=== PATIENT | female | born 1985 | race Caucasian/White ===

== ENCOUNTER 2019-03-17 10:28 | Emergency (ER) | payer MEDICARE, SELFPAY ==
[2019-03-17 10:30] VITALS: BP 101/63; PULSE 86; RESP 20; TEMP 36.7; O2SAT 100; BMI 20.5
--- NOTE | 2019-03-17 11:02 | DI.US.S_ITS ---
PROCEDURE: US OB <= 14 WEEKS FETUS INDICATIONS: SPOTTING OUTSIDE/PRIOR DATING DATA: TECHNIQUE: Real-time scanning was performed of the fetus and maternal pelvic organs, with image documentation. COMPARISON: None. FINDINGS: Embryo: [place]-rump length 1.2 cm measuring the equivalent of 7 weeks 2 days but without cardiac activity. Measurement variability in dating: +/- 4 weeks by LMP, +/- 7 days by mean sac diameter (use before 6 weeks gestation if crown-rump length not able to be measured), +/- 5 days by crown-rump length (up to 8 weeks 6 days gestation), +/- 7 days by crown-rump length (up to 13 weeks 6 days gestation). Maternal organs: Ovaries normal. Limited images through the kidneys demonstrate no hydronephrosis. IMPRESSION: demise, 7 week 2 day gestational age size. Dictated by: Joni Diggs M.D. on 03/17/2019 at 11:52 Approved by: Joni Diggs M.D. on 03/17/2019 at 12:06
[2019-03-17 11:08] LABS: Bacteria Urine None Seen; WBC Urine None Seen (0-5/HPF)
[2019-03-17 11:16] LABS: Culture Indicated Urine Cult Not Indicated; RBC Urine 5-10/HPF (0-5/HPF); Squamous Epithelial Cell Urine 5-10 /HPF (0-5/HPF)
[2019-03-17 11:19] LABS: Add Manual Diff / Slide Review NO; Basophils Absolute Auto 0 /uL (0-100); Basophils Percent Auto 0.4 % (0-2); Eosinophils Absolute Auto 100 /uL (0-450); Eosinophils Percent Auto 0.7 % (2-4); Hematocrit 37.6 % (36-46); Hemoglobin 12.9 g/dL (12.0-16.0); Lymphocytes Absolute Auto 1100 /uL (1100-4500); Lymphocytes Percent Auto 14.8 % (25-40); Mean Corpuscular HGB Conc 34.3 % (30-36); Mean Corpuscular Hemoglobin 31.1 PG (26-34); Mean Corpuscular Volume 90.6 fL (80-100); Monocytes Absolute Auto 400 /uL (0-900); Neutrophils Absolute Auto 5700 /uL (1500-7000); Neutrophils Percent Auto 79.1 % (50-75); Platelet Count 157 X10^3/uL (150-400); Red Blood Cell Count 4.15 X10^6/uL (4.0-5.2); Red Cell Distribution Width 12.5 % (11.6-14.8); White Blood Cell Count 7.2 X10^3/uL (4.5-11.0)
[2019-03-17 11:29] LABS: Alanine Aminotransferase 20 IU/L (<35); Albumin Globulin Ratio 1.6 (1.0-2.8); Alkaline Phosphatase 42 U/L (38-126); Aspartate Aminotransferase 21 IU/L (14-36); BUN Creatinine Ratio 16.3 (6-22); Bilirubin Total 0.5 mg/dL (0.2-1.3); Blood Urea Nitrogen 13 mg/dL (7-17); Calcium 9.7 mg/dL (8.4-10.2); Carbon Dioxide 24 mmol/L (22-32); Chloride 104 mmol/L (98-107); Estimated Glomerular Filt Rate > 60.0 mL/min (>60); Globulin 3.1 g/dL (1.7-4.1); Glucose 105 mg/dL (70-100); HEMOLYSIS < 15 (0-50); Potassium 3.7 mmol/L (3.4-5.1); Sodium 138 mmol/L (137-145); Total Protein 8.1 g/dL (6.3-8.2)
[2019-03-17 11:46] LABS: HCG Quantitative /Beta subunit 6634.7 mIU/mL
--- NOTE | 2019-03-17 12:24 | ED_ITS ---
HPI - <KATIE StarrP - Last Filed: 03/17/19 22:27> General Chief complaint: Vaginal Bleeding Stated complaint: possible miscarriage Time Seen by Provider: 03/17/19 11:58 Source: patient Mode of arrival: Ambulatory Limitations: no limitations History of Present Illness HPI Narrative: This is a 33-year-old female, nonsmoker, who presents to ED with spouse and young daughter with chief complain of dark brown vaginal clots and spotting for 4- 5 times since 03/15/2019 with mild low abdominal cramping. LMP 01/09/2019 and reports about 9.5 week EGA with . Patient reports her 1st was high risk with hyperemesis gravidarum, fibromyalgia and delivered her 1st daughter by . Patient is currently waiting for initial OB appointment at [facility] on 03/22/2019 and she had called of couple of times to be seen at clinic but advised to evaluated in ED since there's no appointment available. Patient denies fever, chills, increasing nausea or vomiting, urinary symptoms. Patient has morning sickness and has been using cannabis. Patient : Yes Review of Systems <KHADIJAH Starr - Last Filed: 03/17/19 22:27> Review of Systems Narrative: General: Denies fever, chills, fatigue, malaise, sweats. HEENT: Denies sinus pain, ear pain, sore throat, difficulty swallowing, dizziness. Respiratory: Denies dyspnea, cough, wheezing, hemoptysis, sputum. Cardiovascular: Denies chest pain, palpitations, orthopnea, edema. Gastrointestinal: See HPI : Denies dysuria, frequency, incontinence, hematuria, urinary retention. Musculoskeletal: Denies weakness, joint pain or bony pain. Skin: Denies rash, skin lesions, or other. Neurologic: Denies weakness, headache, numbness, change in speech, confusion, seizures, incoordination. Psychiatric: No concerning psychosocial issues. 12-point review of systems is negative except for those stated above. Genitourinary Genitourinary: Reports abnormal vaginal bleeding (With dark red small clots since 2 nights ago. Approx 9.5 EGA) PMFSH - <KATIE StarrP - Last Filed: 03/17/19 22:27> Past Medical History Additional medical history: Hyperemesis gravidium, Surgical history: Reports other (Tonsillectomy) GROUNDS AND NURSERY SPECIALIST history: Reports Other () Patient : Yes Psychiatric history: Reports anxiety and depression Family History Family history: Reports non-contributory Exam <KATIE StarrP - Last Filed: 03/17/19 22:27> Narrative Exam Narrative: General appearance: well developed, well nourished, in no acute distress. Head: normocephalic, atraumatic, no scalp lesions, non-tender. ENT: Bilateral auditory canals and tympanic membranes clear. Hearing grossly intact. Nose without bleeding, purulent discharge, septal hematoma or deviation. Turbinate without erythema or swelling. Facial sinuses nontender to palpate. Mucous membrane moist, no mucosal lesion. Throat without erythema, tonsillar hypertrophy or exudate. Uvula in midline, airway patent. Neck/Thyroid: neck supple, full range of motion, no visible masses or meningeal signs. No JVD, non-tender without lymphadenopathy. Skin: no suspicious rashes, lesions over visible areas. Warm and dry and appropriate color for ethnicity. Heart: no clubbing, no cyanosis, no edema. S1 and S2 normal. RRR w/o murmurs, clicks, or bruits. Lungs: Breathing even and unlabored. No stridor. No accessory muscles used. Able to speak in full sentences. Chest: normal shape and expansion. Abdomen: Mild tenderness to palpate in suprapubic region. Non-obese, non- distended. Neurologic: alert and oriented. Cognitive exam, CUSTOM HARVESTER and PNS grossly intact on informal exam. Psych: good eye contact, normal affect. Initial Vital Signs Initial Vital Signs: Vital Signs Temperature 98.0 F 03/17/19 10:30 Pulse Rate 86 03/17/19 10:30 Respiratory Rate 20 03/17/19 10:30 Blood Pressure 101/63 03/17/19 10:30 Pulse Oximetry 100 03/17/19 10:30 <Lili Mills DO - Last Filed: 03/18/19 08:54> Initial Vital Signs Initial Vital Signs: Vital Signs Temperature 98.0 F 03/17/19 10:30 Pulse Rate 86 03/17/19 10:30 Respiratory Rate 20 03/17/19 10:30 Blood Pressure 101/63 03/17/19 10:30 Pulse Oximetry 100 03/17/19 10:30 Scores <[facility] CENTRIFUGAL STATION OPERATOR - Last Filed: 03/17/19 22:27> GCS Lashell coma scale eye opening: Spontaneous Lashell coma scale verbal response: Orientated Carson coma scale motor response: Obey commands Lashell coma scale total score: 15 Course <[facility] CENTRIFUGAL STATION OPERATOR - Last Filed: 03/17/19 22:27> Orders Ordered: ED Orders 03/17/19 10:58 Urine Microscopic Stat 03/17/19 11:02 US OB <= 14 weeks fetus Stat 03/17/19 11:11 ABO RH Type Stat Complete Blood Count AUTO DIFF Stat Comprehensive Metabolic Panel Stat HCG Quantitative Stat Vital Signs Vital signs: Vital Signs - 8 hr 03/17/19 10:30 Temperature 98.0 F Pulse Rate 86 Respiratory Rate 20 Blood Pressure 101/63 Pulse Oximetry 100 <Lili Mills DO - Last Filed: 03/18/19 08:54> Orders Ordered: ED Orders 03/17/19 10:58 Urine Microscopic Stat 03/17/19 11:02 US OB <= 14 weeks fetus Stat 03/17/19 11:11 ABO RH Type Stat Complete Blood Count AUTO DIFF Stat Comprehensive Metabolic Panel Stat HCG Quantitative Stat Vital Signs Vital signs: Vital Signs - 8 hr 03/17/19 10:30 Temperature 98.0 F Pulse Rate 86 Respiratory Rate 20 Blood Pressure 101/63 Pulse Oximetry 100 MDM - OB/Uterine Contractions <[facility] - Last Filed: 03/17/19 22:27> Differential Diagnosis Differential diagnosis: Likely other (treaten AB, spontaneous AB, incomplete AB) Medical Records Attestation: I reviewed the patient's medical records. Lab Data Attestation: I reviewed the patient's lab results. Result diagrams: 03/17/19 11:11 03/17/19 11:11 Labs: Lab Results 03/17/19 03/17/19 03/17/19 Range/Units 10:58 11:11 11:11 WBC 7.2 (4.5-11.0) X10^3/uL RBC 4.15 (4.0-5.2) X10^6/uL Hgb 12.9 (12.0-16.0) g/dL Hct 37.6 (36-46) % MCV 90.6 (80-100) fL MCH 31.1 (26-34) PG MCHC 34.3 (30-36) % RDW 12.5 (11.6-14.8) % Plt Count 157 (150-400) X10^3/uL Neut % (Auto) 79.1 H (50-75) % Lymph % (Auto) 14.8 L (25-40) % [place] % (Auto) 5.0 (3-14) % Eos % (Auto) 0.7 L (2-4) % Baso % (Auto) 0.4 (0-2) % Neut # (Auto) 5700 (8128-9030) /uL Lymph # (Auto) 1100 (0290-3592) /uL [place] # (Auto) 400 (0-900) /uL Eos # (Auto) 100 (0-450) /uL Baso # (Auto) 0 (0-100) /uL Sodium 138 (137-145) mmol/L Potassium 3.7 (3.4-5.1) mmol/L Chloride 104 (98-107) mmol/L Carbon Dioxide 24 (22-32) mmol/L BUN 13 (7-17) mg/dL Creatinine 0.80 (0.52-1.04) mg/dL Estimated GFR > 60.0 (>60) mL/min BUN/Creatinine Ratio 16.3 (6-22) Glucose 105 H (70-100) mg/dL Calcium 9.7 (8.4-10.2) mg/dL Total Bilirubin 0.5 (0.2-1.3) mg/dL AST 21 (14-36) IU/L ALT 20 (<35) IU/L Alkaline Phosphatase 42 (38-126) U/L Total Protein 8.1 (6.3-8.2) g/dL Albumin 5.0 (3.5-5.0) g/dL Globulin 3.1 (1.7-4.1) g/dL Albumin/Globulin Ratio 1.6 (1.0-2.8) HCG, Quant 6634.7 mIU/mL Urine RBC 5-10/hpf H (0-5/HPF) Urine WBC None seen (0-5/HPF) Ur Squamous Epith Cells 5-10 /hpf H (0-5/HPF) Urine Bacteria None seen (None) Ur Culture Indicated? Cult not indicated Blood Type 03/17/19 Range/Units 11:11 WBC (4.5-11.0) X10^3/uL RBC (4.0-5.2) X10^6/uL Hgb (12.0-16.0) g/dL Hct (36-46) % MCV (80-100) fL MCH (26-34) PG MCHC (30-36) % RDW (11.6-14.8) % Plt Count (150-400) X10^3/uL Neut % (Auto) (50-75) % Lymph % (Auto) (25-40) % Mariposa % (Auto) (3-14) % Eos % (Auto) (2-4) % Baso % (Auto) (0-2) % Neut # (Auto) (1650-4383) /uL Lymph # (Auto) (1761-0893) /uL Mariposa # (Auto) (0-900) /uL Eos # (Auto) (0-450) /uL Baso # (Auto) (0-100) /uL Sodium (137-145) mmol/L Potassium (3.4-5.1) mmol/L Chloride (98-107) mmol/L Carbon Dioxide (22-32) mmol/L BUN (7-17) mg/dL Creatinine (0.52-1.04) mg/dL Estimated GFR (>60) mL/min BUN/Creatinine Ratio (6-22) Glucose (70-100) mg/dL Calcium (8.4-10.2) mg/dL Total Bilirubin (0.2-1.3) mg/dL AST (14-36) IU/L ALT (<35) IU/L Alkaline Phosphatase (38-126) U/L Total Protein (6.3-8.2) g/dL Albumin (3.5-5.0) g/dL Globulin (1.7-4.1) g/dL Albumin/Globulin Ratio (1.0-2.8) HCG, Quant mIU/mL Urine RBC (0-5/HPF) Urine WBC (0-5/HPF) Ur Squamous Epith Cells (0-5/HPF) Urine Bacteria (None) Ur Culture Indicated? Blood Type A Positive Point of Care Testing Test Results Positive Urine Dip Bedside Urine Glucose Negative Bedside Urine Bilirubin - Negative Bedside Urine Ketone - Negative Urine Specific Mayflower 1.015 Bedside Urine Occult Blood +/- Bedside Urine pH 7.0 Bedside Urine Protein - Negative Bedside Urine Urobilinogen - Negative Bedside Urine Nitrite - Negative Bedside Urine Leukocytes - Negative Esterase Imaging Data US-Pelvic: Radiologist's Impression: [address] [address] Ultrasound Report Signed Patient: Zoe Guadalupe LMR#: [id number] : 1985Acct:[id number] Age/Sex: 33 / FDate of Service: 03/17/19 Loc: ED Accession Number: [id number] Procedure: US OB <= 14 weeks fetus Ordering Provider: Lili Mills D.O. PROCEDURE: US OB <= 14 WEEKS FETUS INDICATIONS: SPOTTING OUTSIDE/PRIOR DATING DATA: TECHNIQUE: Real-time scanning was performed of the fetus and maternal pelvic organs, with image documentation. COMPARISON: None. FINDINGS: Embryo: [place]-rump length 1.2 cm measuring the equivalent of 7 weeks 2 days but without cardiac activity. Measurement variability in dating: +/- 4 weeks by LMP, +/- 7 days by mean sac diameter (use before 6 weeks gestation if crown-rump length not able to be measured), +/- 5 days by crown-rump length (up to 8 weeks 6 days gestation), +/- 7 days by crown-rump length (up to 13 weeks 6 days gestation). Maternal organs: Ovaries normal. Limited images through the kidneys demonstrate no hydronephrosis. IMPRESSION: demise, 7 week 2 day gestational age size. Dictated by: Joni Diggs M.D. on 03/17/2019 at 11:52 Approved by: Joni Diggs M.D. on 03/17/2019 at 12:06 [facility] Narrative Medical decision making narrative: This is a 33-year-old female with with LMP of 01/09/2019, about 9.5 EGA who presents to ED with vaginal spotting with dark red clots and mild low abdominal pain for last couple of days. The patient has not had 1st OB appointment at this time and had IUP verified. Patient denies fever, chills, increasing nausea or vomiting, chest pain, breathing difficulty or lightheadedness. U hCG was positive with no indication for infection. CBC and chemistry test were unremarkable today. Bhcg quant was 6634.7 today. Pelvic US result indicates no cardiac activity appreciated. Embryo length equivalent of 7 weeks 2 days with normal ovaries. Patient was in tears while sharing the findings, patient advised to take [id number] Tylenol and Motrin as needed for cramping discomfort. [facility] was contacted and spoke with triage nurse over the phone and today's findings were shared. Requested for a follow-up appointment with metallurgical specialist in next 1-2 days and possible repeat blood test and was informed that patient will be in contact by the office with a follow-up appointment information. The patie nt's blood type is A positive. Return precautions were discussed with the patient. Patient verbalized understanding and agrees with the treatment plan. <Lili Mills, - Last Filed: 03/18/19 08:54> Lab Data Labs: Lab Results 03/17/19 03/17/19 03/17/19 Range/Units 10:58 11:11 11:11 WBC 7.2 (4.5-11.0) X10^3/uL RBC 4.15 (4.0-5.2) X10^6/uL Hgb 12.9 (12.0-16.0) g/dL Hct 37.6 (36-46) % MCV 90.6 (80-100) fL MCH 31.1 (26-34) PG MCHC 34.3 (30-36) % RDW 12.5 (11.6-14.8) % Plt Count 157 (150-400) X10^3/uL Neut % (Auto) 79.1 H (50-75) % Lymph % (Auto) 14.8 L (25-40) % Mariposa % (Auto) 5.0 (3-14) % Eos % (Auto) 0.7 L (2-4) % Baso % (Auto) 0.4 (0-2) % Neut # (Auto) 5700 (6777-3503) /uL Lymph # (Auto) 1100 (2659-5804) /uL Mariposa # (Auto) 400 (0-900) /uL Eos # (Auto) 100 (0-450) /uL Baso # (Auto) 0 (0-100) /uL Sodium 138 (137-145) mmol/L Potassium 3.7 (3.4-5.1) mmol/L Chloride 104 (98-107) mmol/L Carbon Dioxide 24 (22-32) mmol/L BUN 13 (7-17) mg/dL Creatinine 0.80 (0.52-1.04) mg/dL Estimated GFR > 60.0 (>60) mL/min BUN/Creatinine Ratio 16.3 (6-22) Glucose 105 H (70-100) mg/dL Calcium 9.7 (8.4-10.2) mg/dL Total Bilirubin 0.5 (0.2-1.3) mg/dL AST 21 (14-36) IU/L ALT 20 (<35) IU/L Alkaline Phosphatase 42 (38-126) U/L Total Protein 8.1 (6.3-8.2) g/dL Albumin 5.0 (3.5-5.0) g/dL Globulin 3.1 (1.7-4.1) g/dL Albumin/Globulin Ratio 1.6 (1.0-2.8) HCG, Quant 6634.7 mIU/mL Urine RBC 5-10/hpf H (0-5/HPF) Urine WBC None seen (0-5/HPF) Ur Squamous Epith Cells 5-10 /hpf H (0-5/HPF) Urine Bacteria None seen (None) Ur Culture Indicated? Cult not indicated Blood Type 03/17/19 Range/Units 11:11 WBC (4.5-11.0) X10^3/uL RBC (4.0-5.2) X10^6/uL Hgb (12.0-16.0) g/dL Hct (36-46) % MCV (80-100) fL MCH (26-34) PG MCHC (30-36) % RDW (11.6-14.8) % Plt Count (150-400) X10^3/uL Neut % (Auto) (50-75) % Lymph % (Auto) (25-40) % Mariposa % (Auto) (3-14) % Eos % (Auto) (2-4) % Baso % (Auto) (0-2) % Neut # (Auto) (0142-2890) /uL Lymph # (Auto) (9889-3696) /uL Mariposa # (Auto) (0-900) /uL Eos # (Auto) (0-450) /uL Baso # (Auto) (0-100) /uL Sodium (137-145) mmol/L Potassium (3.4-5.1) mmol/L Chloride (98-107) mmol/L Carbon Dioxide (22-32) mmol/L BUN (7-17) mg/dL Creatinine (0.52-1.04) mg/dL Estimated GFR (>60) mL/min BUN/Creatinine Ratio (6-22) Glucose (70-100) mg/dL Calcium (8.4-10.2) mg/dL Total Bilirubin (0.2-1.3) mg/dL AST (14-36) IU/L ALT (<35) IU/L Alkaline Phosphatase (38-126) U/L Total Protein (6.3-8.2) g/dL Albumin (3.5-5.0) g/dL Globulin (1.7-4.1) g/dL Albumin/Globulin Ratio (1.0-2.8) HCG, Quant mIU/mL Urine RBC (0-5/HPF) Urine WBC (0-5/HPF) Ur Squamous Epith Cells (0-5/HPF) Urine Bacteria (None) Ur Culture Indicated? Blood Type A Positive Point of Care Testing Test Results Positive Urine Dip Bedside Urine Glucose Negative Bedside Urine Bilirubin - Negative Bedside Urine Ketone - Negative Urine Specific [place] 1.015 Bedside Urine Occult Blood +/- Bedside Urine pH 7.0 Bedside Urine Protein - Negative Bedside Urine Urobilinogen - Negative Bedside Urine Nitrite - Negative Bedside Urine Leukocytes - Negative Esterase Discharge Plan Departure Patient Disposition: Home Clinical Impression: Spontaneous in first trimester Discharge Date/Time: 03/17/19 13:52 Instructions: DI for Miscarriage Activity Restrictions/Additional Instructions: You have been diagnosed with [ miscarriage during 1st trimester. According to ultrasound test today, the cardiac activity was not seen for your fetus. CBC and chemistry tests were unremarkable. BHcg level today was 6634.7 and the urine does not appears to be infected ]. What to do: *Take your medications as directed. You can take obze-oyk-wauknyt Tylenol and Motrin as needed for discomfort. *Follow up with your primary care provider in 2-3 days, call for an appointment. The [facility] will call you today to make a follow-up appointment with you. If you do not hear back from them later on this afternoon please contact them. Let them know you were seen in the ED and that we asked you to be seen in follow up. *Return to ED if you have any new, worsening, or concerning symptoms, such as [chest pain, breathing difficulty, severe vaginal bleeding, syncopal episode, fever or any acute concerns]. Referrals: Zoe Monsivais [Other]
[2019-03-17 13:49] VITALS: BP 118/52; PULSE 82; RESP 17; O2SAT 100
== END 2019-03-17 13:52 | disposition home or self-care (01) ==
PROVIDERS: Emergency Medicine; Emergency Provider Nurse Practitioner Family
DX: O03.9 Complete or unspecified spontaneous abortion without complication (principal)
CPT/HCPCS: 36415; 76801; 76817; 80053; 81003; 81015; 81025; 84702; 85025; 86900; 86901; 99283; 99284

== ENCOUNTER → 2019-04-18 12:29 | Outpatient (CLI) | payer MEDICARE, SELFPAY ==
--- NOTE | 2019-04-18 12:32 | DI.RAD.S_ITS ---
PROCEDURE: XR SACRUM COCCYX MIN 2V INDICATIONS: Back pain TECHNIQUE: 3 views of the sacrum and coccyx acquired. COMPARISON: None. FINDINGS: Bones: No fractures or dislocations, but there is prominent grade 2 anterolisthesis of L5 on S1 noted at the lower lumbosacral spine with likely due to pars defects-please see lumbosacral spine plain films also obtained same day. No suspicious bony lesions. Soft tissues: Visualized bowel gas pattern is normal. No suspicious soft tissue densities. IMPRESSION: No trauma to the sacrum or coccyx, normal alignment at the sacroiliac joints. Prominent grade 2 anterolisthesis of L5 on S1 as discussed in detail during lumbosacral spine plain film imaging report also from today. Please refer to that study. Dictated by: Joni Diggs M.D. on 04/18/2019 at 13:12 Approved by: Joni Diggs M.D. on 04/18/2019 at 13:13
--- NOTE | 2019-04-18 12:32 | DI.RAD.S_ITS ---
PROCEDURE: XR LUMBAR SPINE 2-3V INDICATIONS: Back pain TECHNIQUE: 3 views of the lumbar spine were acquired. COMPARISON: None. FINDINGS: Bones: 5 [id number]-[id number]-[id number] vertebrae are present. There is abnormal bony alignment with grade 2 prominent anterolisthesis of L5 on S1 with no significant residual disc height between L5 and S1 and an appearance of likely due to bilateral pars defects at L5 allowing anterolisthesis to this degree. No vertebral body compression fractures. No suspicious bony lesions. Soft tissues: Overlying bowel gas pattern is normal. No suspicious soft tissue calcifications. IMPRESSION: Prominent grade 2 anterolisthesis of L5 on S1 with no visualized intervening disc and what appears to be bilateral pars defects at L5. High-grade spinal and foraminal stenosis likely is present given the severity of subluxation and disc height reduction noted. Dictated by: Joni Diggs M.D. on 04/18/2019 at 13:10 Approved by: Joni Diggs M.D. on 04/18/2019 at 13:12
[2019-04-18 14:08] LABS: Erythrocyte Sedimentation Rate 18 MM/HR (0-20); Rheumatoid Factor < 8.6 IU/mL (<12.0)
[2019-04-20 17:20] LABS: HLA B27 NEGATIVE (Negative)
[2019-04-27 08:47] LABS: ANA Pattern NUCLEAR, SPECKLED; ANA Screen, IFA POSITIVE (NEGATIVE)
== END ==
PROVIDERS: PCP Family Medicine; Visit Provider Family Medicine
DX: M54.9 Dorsalgia, unspecified (principal); M43.17 Spondylolisthesis, lumbosacral region; M79.7 Fibromyalgia; Z76.89 Persons encountering health services in other specified circumstances
CPT/HCPCS: 36415; 72100; 72220; 81374; 85651; 86038; 86430

== ENCOUNTER → 2020-05-07 15:25 | Outpatient (CLI) | payer MEDICARE, SELFPAY ==
[2020-05-07 18:14] LABS: HCG Quantitative /Beta subunit 1930.4 mIU/mL
== END ==
PROVIDERS: PCP Family Medicine; Referring Provider Family Medicine; Visit Provider Family Medicine
DX: N92.6 Irregular menstruation, unspecified (principal); Z87.59 Personal history of other complications of pregnancy, childbirth and the puerperium; R11.2 Nausea with vomiting, unspecified
CPT/HCPCS: 36415; 84702

== ENCOUNTER 2022-03-13 20:00 | Emergency (ER) | payer MEDICARE, SELFPAY ==
[2022-03-13 20:04] VITALS: BP 110/67; PULSE 96; RESP 16; TEMP 35.9; O2SAT 98; BMI 23.6
--- NOTE | 2022-03-13 20:23 | ED_ITS ---
HPI - General Adult General Chief complaint: Extremity Injury, Upper Stated complaint: knuckle injury Time Seen by Provider: 03/13/22 20:11 Source: patient Mode of arrival: Ambulatory History of Present Illness HPI narrative: 36-year-old female who is here for evaluation of a left index finger injury. She states that she initially injured it approximately 3 weeks ago. And it does seem to improve but then she will do something to re-injury. She does have fibromyalgia and she is concerned that maybe this is making her symptoms worse. Related Data Previous Rx's Medication Instructions Recorded meloxicam 15 mg tablet (Mobic) 15 mg PO DAILY Use for 12/20/20 fibromyalgia pain #30 tabs gabapentin 300 mg capsule 100 mg PO BID #60 caps 01/16/21 Allergies Allergy/AdvReac Type Severity Reaction Status Date / Time amitriptyline AdvReac Severe excessive Verified 03/13/22 20:09 weight gain zolpidem [From Ambien] AdvReac Severe sleep Verified 03/13/22 20:09 walk, hallucination Review of Systems Constitutional Constitutional: Reports system reviewed and no additional complaints, except as documented Musculoskeletal Musculoskeletal: Reports system reviewed and no additional complaints, except as documented Integumentary/Breasts Skin/Breast: Reports system reviewed and no additional complaints, except as documented Neurologic Neurologic: Reports system reviewed and no additional complaints, except as documented Patient History Medical History Allergies Ankle pain (~2003) Anxiety (~2007) Chicken pox Chlamydia (~2013) Chronic back pain (~2003) Depression (~2007) Fibromyalgia (~2003) Foot pain (~2007) Fractures (~2002) GERD (gastroesophageal reflux disease) Headache Migraines Ovarian cyst (~2013) Painful menstrual periods Shoulder pain (~2012) Surgical History (Updated 04/26/19 @ 21:16 by Esperanza Ramos) Anesthesia Endometriosis (~2013) History of dilatation and curettage (~02/2019) History of tonsillectomy (~03/2009) Family History (Updated 04/26/19 @ 21:18 by Esperanza Ramos) Father ETOHism Mother Diabetes mellitus Hyperlipidemia Mental health problem Stroke Social History Smoking Status: Former smoker Tobacco: How many years used: 10 quit status: has quit before second hand exposure: Yes alcohol intake: current substance use type: marijuana Smoking Status: Former smoker alcohol intake frequency: other Substance Use Type: does not use Exam Initial Vital Signs Initial Vital Signs: Vital Signs Temperature 96.7 F L 03/13/22 20:04 Pulse Rate 96 H 03/13/22 20:04 Respiratory Rate 16 03/13/22 20:04 Blood Pressure 110/67 03/13/22 20:04 Pulse Oximetry 98 03/13/22 20:04 Oxygen Delivery Method 03/13/22 20:04 HENMT Head: normal to inspection and normocephalic Skin General: no rashes or lesions noted Neuro Sensory Exam: no sensory deficits noted Extrem Other: Reports discomfort to the MCP joint of the left index finger. PIP and D IP joints are unremarkable. Course Orders Ordered: ED Orders 03/13/22 20:23 XR hand LT min 3V Stat Vital Signs Vital signs: Vital Signs - 8 hr 03/13/22 20:04 03/13/22 21:45 Temperature 96.7 F L 97.3 F L Pulse Rate 96 H 74 Respiratory Rate 16 16 Blood Pressure 110/67 122/78 Pulse Oximetry 98 98 Oxygen Delivery Method Room Air Room Air Medical Decision Making Imaging Data Extremity x-ray #1: Radiologist's Impression: [place] [address] XRay Report Signed Patient: Zoe Guadalupe MR#: [id number] : 1985 Acct:[id number] Age/Sex: 36 / F Date of Service: 03/13/22 Loc: ED Accession Number: [id number] ?? Procedure: XR hand LT min 3V Ordering Provider: Kris Paz D.O. PROCEDURE:? XR HAND LT MIN 3V ? INDICATIONS:? pain MCP joint of index finger ? TECHNIQUE:? Three views of the left hand acquired.? ? COMPARISON:? None. ? FINDINGS:? ? Bones:? No fractures or dislocations.? Carpal bones are normally aligned.? No suspicious bony lesions.? ? Soft tissues:? No suspicious soft tissue calcifications.? ? ? IMPRESSION:? ? 1. No fracture or dislocation.? ? ? Dictated by: Dung Geronimo M.D. on 03/13/2022 at 21:13 ? ? Approved by: Dung Geronimo M.D. on 03/13/2022 at 21:13?? MDM Narrative Medical decision making narrative: Neurovascularly intact, no fractures nor dislocations. No signs of infection. Discharge home with conservative treatment instructions. She was given follow- up instructions. She expressed understanding and agreement. Discharge Plan Departure Patient Disposition: Home Clinical Impression: Injury of finger of left hand Instructions: How to Judah Tape Activity Restrictions/Additional Instructions: Continue to take all of your medications as directed. I recommend that you contact your primary doctor for further workup. Return to the emergency department for any new symptoms. Prescriptions: No Action meloxicam [Mobic] 15 mg tablet 15 mg PO DAILY Qty: 30 1RF gabapentin 300 mg capsule 100 mg PO BID Qty: 60 2RF Rx Instructions: Initially take 1 at bedtime and advanced to b.i.d. in 1 week Referrals: Jesus Salazar DO [Primary Care Provider] - Visit Report Forms: Patient Portal/API
--- NOTE | 2022-03-13 20:23 | DI.RAD.S_ITS ---
PROCEDURE: XR HAND LT MIN 3V INDICATIONS: pain MCP joint of index finger TECHNIQUE: Three views of the left hand acquired. COMPARISON: None. FINDINGS: Bones: No fractures or dislocations. Carpal bones are normally aligned. No suspicious bony lesions. Soft tissues: No suspicious soft tissue calcifications. IMPRESSION: 1. No fracture or dislocation. Dictated by: Dung Geronimo M.D. on 03/13/2022 at 21:13 Approved by: Dung Geronimo M.D. on 03/13/2022 at 21:13
[2022-03-13 21:45] VITALS: BP 122/78; PULSE 74; RESP 16; TEMP 36.3; O2SAT 98
== END 2022-03-13 21:40 | disposition home or self-care (01) ==
PROVIDERS: Emergency Provider Emergency Medicine; PCP Family Medicine
DX: S69.92XA Unspecified injury of left wrist, hand and finger(s), initial encounter (principal); X58.XXXA Exposure to other specified factors, initial encounter
CPT/HCPCS: 73130; 99281; 99283

== ENCOUNTER → 2022-06-17 16:54 | Outpatient (CLI) | payer MEDICARE, MEDICAID, SELFPAY ==
[2022-06-17 17:55] LABS: Add Manual Diff / Slide Review NO; Basophils Absolute Auto 0 /uL (0-100); Basophils Percent Auto 0.4 % (0-2); Eosinophils Absolute Auto 100 /uL (0-450); Eosinophils Percent Auto 1.4 % (2-4); Hematocrit 39.2 % (36-46); Hemoglobin 13.5 g/dL (12.0-16.0); Lymphocytes Absolute Auto 2500 /uL (1100-4500); Lymphocytes Percent Auto 28.1 % (25-40); Mean Corpuscular HGB Conc 34.3 % (30-36); Mean Corpuscular Hemoglobin 30.8 PG (26-34); Mean Corpuscular Volume 89.6 fL (80-100); Monocytes Absolute Auto 500 /uL (0-900); Monocytes Percent Auto 5.4 % (3-14); Neutrophils Absolute Auto 5800 /uL (1500-7000); Neutrophils Percent Auto 64.7 % (50-75); Platelet Count 172 X10^3/uL (150-400); Red Blood Cell Count 4.38 X10^6/uL (4.0-5.2); Red Cell Distribution Width 13.2 % (11.6-14.8); White Blood Cell Count 8.9 X10^3/uL (4.5-11.0)
[2022-06-17 18:16] LABS: Alanine Aminotransferase 17 IU/L (<35); Albumin 4.3 g/dL (3.5-5.0); Albumin Globulin Ratio 1.3 (1.0-2.8); Alkaline Phosphatase 50 U/L (38-126); Aspartate Aminotransferase 22 IU/L (14-36); BUN Creatinine Ratio 19.3 (6-22); Bilirubin Total 0.3 mg/dL (0.2-1.3); Blood Urea Nitrogen 17 mg/dL (7-17); Calcium 9.3 mg/dL (8.4-10.2); Carbon Dioxide 26 mmol/L (22-32); Chloride 103 mmol/L (98-107); Estimated Glomerular Filt Rate > 60 mL/min (>60); Globulin 3.4 g/dL (1.7-4.1); Glucose 92 mg/dL (70-100); HEMOLYSIS 19 (0-50); Potassium 3.8 mmol/L (3.4-5.1); Sodium 137 mmol/L (137-145); Total Protein 7.7 g/dL (6.3-8.2)
[2022-06-17 18:46] LABS: TSH w/ Reflex to FT4 6.88 uIU/mL (0.47-4.68)
[2022-06-17 19:29] LABS: Free T4, Direct Thyroxine 0.93 ng/dL (0.78-2.19)
== END ==
PROVIDERS: PCP Family Medicine; Referring Provider Family Medicine; Visit Provider Family Medicine
DX: M54.9 Dorsalgia, unspecified (principal); R53.83 Other fatigue; G89.29 Other chronic pain
CPT/HCPCS: 36415; 80053; 84439; 84443; 85025

== ENCOUNTER → 2022-06-17 17:07 | Outpatient (CLI) | payer MEDICARE, MEDICAID, SELFPAY ==
--- NOTE | 2022-06-17 17:11 | DI.RAD.S_ITS ---
PROCEDURE: XR LUMBAR SPINE MIN 4V INDICATIONS: Eval and Treat TECHNIQUE: 5 views of the lumbar spine were acquired, including bilateral oblique views. COMPARISON: [facility], , XR LUMBAR SPINE 2-3V, 04/18/2019, 12:32. FINDINGS: Bones: 5 nonrib-bearing vertebrae are present. Grade 2 anterolisthesis of L5 on S1 secondary to pars defects. Severe disc height loss at L5-S1. Soft tissues: Overlying bowel gas pattern is normal. No suspicious soft tissue calcifications. Oblique images: Pars defect at L5-S1. IMPRESSION: Grade 2 anterolisthesis of L5 on S1 secondary to pars defects. Severe disc height loss at L5-S1. Dictated by: Leo Pak M.D. on 06/18/2022 at 10:20 Approved by: Leo Pak M.D. on 06/18/2022 at 10:21
== END ==
PROVIDERS: PCP Family Medicine; Referring Provider Family Medicine; Visit Provider Family Medicine
DX: M47.9 Spondylosis, unspecified (principal); M43.17 Spondylolisthesis, lumbosacral region; M54.9 Dorsalgia, unspecified; R53.83 Other fatigue; G89.29 Other chronic pain
CPT/HCPCS: 36415; 72110; 80053; 84439; 84443; 85025

== ENCOUNTER 2022-09-26 19:31 | Emergency (ER) | payer MEDICARE, MEDICAID, SELFPAY ==
[2022-09-26 19:40] VITALS: BP 115/78; PULSE 105; RESP 18; TEMP 37; O2SAT 100; BMI 22.1
--- NOTE | 2022-09-26 20:08 | ED.WOUNDLAC ---
HPI - Wound/Laceration General Chief Complaint: Wound/Laceration Stated Complaint: Dog bite Time Seen by Provider: 09/26/22 20:03 Source: patient Mode of arrival: Ambulatory History of Present Illness HPI narrative: 37-year-old female who is here for evaluation of a reported dog bite to right upper anterior/lateral thigh. He states that it was her neighbor's dog who did it. She is not sure of the dog's vaccination status but this does appear to be a domesticated dog. No interventions to the dog bite prior to arrival. She is not up-to-date on her tetanus. Related Data Previous Rx's Medication Instructions Recorded levothyroxine 25 mcg tablet 25 mcg PO DAILY #30 tabs 08/06/22 meloxicam 15 mg tablet 15 mg PO DAILY #30 tabs 08/06/22 methocarbamol 500 mg tablet 500 mg PO BID PRN muscle spasm #60 08/06/22 tabs Allergies Allergy/AdvReac Type Severity Reaction Status Date / Time amitriptyline AdvReac Severe excessive Verified 06/17/22 16:23 weight gain zolpidem [From Ambien] AdvReac Severe sleep Verified 06/17/22 16:23 walk, hallucination gabapentin AdvReac Mild Verified 06/17/22 16:23 Review of Systems Integumentary/Breasts Skin/Breast: Reports system reviewed and no additional complaints, except as documented Patient History Medical History Allergies Ankle pain (~2003) Anterolisthesis of lumbosacral spine Anxiety (~2007) Chicken pox Chlamydia (~2013) Chronic back pain (~2003) Depression (~2007) Fibromyalgia (~2003) Foot pain (~2007) Fractures (~2002) GERD (gastroesophageal reflux disease) Headache Hypothyroidism Migraines Ovarian cyst (~2013) Painful menstrual periods Shoulder pain (~2012) Umbilical abnormality Surgical History Anesthesia Endometriosis (~2013) History of dilatation and curettage (~02/2019) History of tonsillectomy (~03/2009) Family History Father ETOHism Mother Diabetes mellitus Hyperlipidemia Mental health problem Stroke Social History Smoking Status: Former smoker Tobacco: How many years used: 10 quit status: has quit before second hand exposure: Yes alcohol intake: current substance use type: marijuana Smoking Status: Former smoker alcohol intake frequency: other Substance Use Type: does not use Exam Initial Vital Signs Initial Vital Signs: Vital Signs Temperature 98.6 F 09/26/22 19:40 Pulse Rate 105 H 09/26/22 19:40 Respiratory Rate 18 09/26/22 19:40 Blood Pressure 115/78 09/26/22 19:40 Pulse Oximetry 100 09/26/22 19:40 Oxygen Delivery Method Room Air 09/26/22 19:40 Skin Other: Very superficial abrasion and what appears to be a very small puncture wound to the right upper anterior/lateral thigh. No surrounding erythema. Course Orders Ordered: Discontinued Medications Diphtheria/Tetanus/Acell Pertussis (Tet,Diph,Pertuss(Acell),Vac/Pf 0.5 Ml Syringe) 0.5 ml IM .ONCE ONE Stop: 09/26/22 20:10 Last Admin: 09/26/22 20:16 Dose: 0.5 ml Documented By: SANDRITA Vital Signs Vital signs: Vital Signs - 8 hr 09/26/22 19:40 09/26/22 20:21 Temperature 98.6 F Pulse Rate 105 H 89 Respiratory Rate 18 Blood Pressure 115/78 109/70 Pulse Oximetry 100 100 Oxygen Delivery Method Room Air Room Air MDM - Wound/Laceration MDM Narrative Medical decision making narrative: They were only very superficial wounds. Even the puncture wound appears to be very superficial. There was no bleeding. No surrounding erythema. We will hold on any rabies treatment for now. We discussed taking care of the wound. Patient's tetanus was updated. She was given return precautions. She expressed understanding and agreement. Discharge Plan Departure Patient Disposition: Home Clinical Impression: Dog bite Instructions: How to Care for a Domestic Animal Bite, DI for Animal Bites Activity Restrictions/Additional Instructions: You can put topical antibiotic over the bite wound. You can shower like normal. We did update your tetanus today. Return to the emergency department for new or worsening symptoms. Prescriptions: No Action meloxicam 15 mg tablet 15 mg PO DAILY Qty: 30 2RF methocarbamol 500 mg tablet 500 mg PO BID PRN (Reason: muscle spasm) Qty: 60 2RF levothyroxine 25 mcg tablet 25 mcg PO DAILY Qty: 30 5RF Referrals: Jesus Salazar DO [Primary Care Provider] - Stand Alone Forms: Patient Portal/API
[2022-09-26] MEDS: TET,DIPH,PERTUSS(ACELL),VAC/PF 0.5 ML SYRINGE IM (20:16)
[2022-09-26 20:21] VITALS: BP 109/70; PULSE 89; O2SAT 100
== END 2022-09-26 20:22 | disposition home or self-care (01) ==
PROVIDERS: Emergency Provider Emergency Medicine; PCP Family Medicine
DX: S70.371A Other superficial bite of right thigh, initial encounter (principal); W54.0XXA Bitten by dog, initial encounter; Z23 Encounter for immunization
CPT/HCPCS: 90471; 99283; 90715